=== PATIENT | female | born 1935 | race Caucasian/White ===

== ENCOUNTER 2021-10-28 10:50 | Observation (INO) ==
[2021-10-28] MEDS ORDERED: CeFAZolin Syr 2,000MG/20 ML 2,000 MG/20 ML SYRINGE IVPB ONE (12:38)
[2021-10-28] MEDS ORDERED: Ringers Solution, Lactated 1,000 ML IVC SCH (12:45)
[2021-10-28] MEDS ORDERED: TOTAL JOINT MIXTURE (100ML) INTRAART ONE (13:05)
[2021-10-28] MEDS ORDERED: Povidone-Iodine 45 ML, Sodium Chloride IRRigation 1,000 ML IR ONE (13:05)
[2021-10-28] MEDS ORDERED: *HR* Rocuronium Bromide 50 MG/5 ML VIAL ONE ×2 (14:16→16:27)
[2021-10-28] MEDS ORDERED: *HR* FentaNYL (PF) 100 MCG/2 ML VIAL ONE ×2 (14:16→16:50)
[2021-10-28] MEDS ORDERED: Lidocaine HCL 4 ML Topical Solution (Laryng-O-Jet Kit Sterile Pak) TP ONE (14:16)
[2021-10-28] MEDS ORDERED: Lidocaine -MPF 2% 5 ML VIAL ONE (14:16)
[2021-10-28] MEDS ORDERED: *HR* Propofol 200 MG/20 ML VIAL IVP ONE (14:16)
[2021-10-28] MEDS ORDERED: Ondansetron 4 MG/2 ML VIAL ONE (14:16)
[2021-10-28] MEDS ORDERED: Tranexamic Acid 1,000 MG/10 ML VIAL ONE ×2 (14:18→17:52)
[2021-10-28] MEDS ORDERED: ROPIVACAINE/PF/NS 0.25% 1 EACH SYRINGE INTRAART ONE (14:25)
[2021-10-28] MEDS ORDERED: Ropivacaine/PF 0.5% 30 ML VIAL ONE (14:25)
[2021-10-28] MEDS ORDERED: Vancomycin 1,000 MG VIAL ONE ×2 (15:23→15:47)
[2021-10-28] MEDS ORDERED: Sugammadex Sodium 200 MG/2 ML VIAL IV ONE (18:19)
[2021-10-28] MEDS: *HR* FentaNYL (PF) 100 MCG/2 ML VIAL IVP PRN ×4 (18:56→19:42)
[2021-10-28] MEDS ORDERED: *HR* OxyCODONE Immed Rel 5 MG TABLET PO PRN (19:50)
[2021-10-28] MEDS ORDERED: Lacri-Lube 3.5 GM TUBE ONE (20:04)
[2021-10-28] MEDS ORDERED: Naloxone 0.4 MG/ML INJ IVP PRN (21:40)
[2021-10-28] MEDS ORDERED: *HR* Promethazine 25 MG/ML VIAL IM PRN (21:40)
[2021-10-28] MEDS ORDERED: Ondansetron 4 MG/2 ML VIAL IVP PRN (21:40)
[2021-10-28] MEDS ORDERED: Sennosides 8.6 MG TABLET PO PRN (21:40)
[2021-10-28] MEDS ORDERED: MOM Conc 10 ML UD.LIQ PO PRN (21:40)
[2021-10-28] MEDS: rOPINIRole 1 MG TABLET PO SCH (22:50)
[2021-10-28] MEDS: CeFAZolin 2 GM/120 ML BAG IVPB SCH (22:51)
[2021-10-28] MEDS: Ketorolac 30 MG/ML VIAL IVP SCH (22:51)
[2021-10-28] MEDS: PrednisoLONE Acetate 1% Opth 5 ML BOTTLE BOTH EYES SCH (22:53)
[2021-10-28] MEDS: Ringers Solution, Lactated 1,000 ML IVC SCH (22:55)
[2021-10-29] MEDS: Ketorolac 30 MG/ML VIAL IVP SCH ×4 (00:29→19:40)
[2021-10-29] MEDS: CeFAZolin 2 GM/120 ML BAG IVPB SCH (00:35)
[2021-10-29] MEDS: MetroNIDAZOLE 500 MG/100 ML 500 MG/100 ML BAG IVPB SCH ×3 (01:38→16:06)
[2021-10-29 05:26] LABS: Basophils % 0.1 %; Hematocrit 40.3 % (35.3-44.9); Hemoglobin 13.5 g/dL (11.5-15.4); Immature Granulocytes % 0.6 % (0-4); Lymphocytes # 0.3 K/mcL (0.6-4.6); Lymphocytes % 1.3 %; Mean Corpuscular HGB Conc 33.5 g/dL (31.6-35.5); Mean Corpuscular Hemoglobin 32.6 pg (28.0-33.3); Mean Corpuscular Volume 97.3 fL (83.0-100.0); Mean Platelet Volume 9.5 fL (9.4-12.4); Monocytes # 0.9 K/mcL (0.0-1.3); Monocytes % 4.1 %; Neutrophils # 21.1 K/mcL (1.6-8.9); Platelet Count 260 K/mcL (140-400); Red Blood Count 4.14 M/mcL (3.82-4.97); Red Cell Distribution Width 12.9 % (11.5-14.5); Segmented Neutrophils % 93.9 %; White Blood Count 22.5 K/mcL (4.3-11.1)
[2021-10-29 05:46] LABS: BUN/Creatinine Ratio 25 (6-26); Blood Urea Nitrogen 15 mg/dL (8-23); Calcium 8.9 mg/dL (8.6-10.3); Carbon Dioxide 23 mEq/L (23-29); Chloride 98 mEq/L (98-107); Glucose 160 mg/dL (70-105); Magnesium 1.4 mg/dL (1.6-2.6); Osmolality,Calculated 278 (280-300); Phosphorous 3.2 mg/dL (2.7-4.5); Potassium 3.7 mEq/L (3.5-5.1); Sodium 132 mEq/L (136-145); eGFR For African Americans > 60 (> 60); eGFR For Non-African Americans > 60 (> 60)
[2021-10-29] MEDS ORDERED: Magnesium Sulfate 1 GM/102 ML PIGGYBACK IVPB ONE (06:26)
[2021-10-29] MEDS ORDERED: Ringers Solution, Lactated 1,000 ML IVC STA (06:48)
[2021-10-29] MEDS ORDERED: 0.9 % Sodium Chloride 1,000 ML IVC SCH (08:00)
[2021-10-29] MEDS: Cholecalciferol (D-3) 1,000 UNIT (25MCG) TABLET PO SCH (08:16)
[2021-10-29] MEDS: rOPINIRole 1 MG TABLET PO SCH ×3 (08:16→19:34)
[2021-10-29] MEDS: Ascorbic Acid 500 MG TABLET PO SCH ×2 (08:17→19:34)
[2021-10-29] MEDS: Multivit/Ca/Min/Fe/FA 1 TAB TABLET PO SCH (08:17)
[2021-10-29] MEDS: *HR* Metformin 500 MG TABLET PO SCH ×2 (08:17→19:34)
[2021-10-29] MEDS ORDERED: OCUVITE PO SCH (09:00)
[2021-10-29] MEDS: PrednisoLONE Acetate 1% Opth 5 ML BOTTLE BOTH EYES SCH ×4 (11:03→21:43)
[2021-10-29] MEDS: cefTRIAXone 1,000 MG in 0.9 % Sodium Chloride Mini Bag 100 ML IVPB SCH (11:04)
[2021-10-29] MEDS: *HR* OxyCODONE Immed Rel 5 MG TABLET PO PRN (14:00)
[2021-10-29] MEDS: Ringers Solution, Lactated 1,000 ML IVC SCH (14:05)
[2021-10-29] MEDS: Aspirin Enteric Coated 81 MG Tablet PO SCH (19:35)
[2021-10-30] MEDS: Ketorolac 30 MG/ML VIAL IVP SCH ×3 (00:04→18:36)
[2021-10-30] MEDS: MetroNIDAZOLE 500 MG/100 ML 500 MG/100 ML BAG IVPB SCH ×3 (01:24→16:05)
[2021-10-30] MEDS: Ringers Solution, Lactated 1,000 ML IVC SCH ×2 (03:42→16:09)
[2021-10-30] MEDS ORDERED: Chloraseptic Spray 177 ML BOTTLE MM PRN (05:05)
[2021-10-30 05:09] LABS: Basophils % 0.2 %; Eosinophils # 0.1 K/mcL (0.0-0.6); Eosinophils % 0.5 %; Hematocrit 37.9 % (35.3-44.9); Hemoglobin 12.4 g/dL (11.5-15.4); Immature Granulocytes % 0.3 % (0-4); Mean Corpuscular HGB Conc 32.7 g/dL (31.6-35.5); Mean Corpuscular Hemoglobin 32.1 pg (28.0-33.3); Mean Corpuscular Volume 98.2 fL (83.0-100.0); Mean Platelet Volume 9.5 fL (9.4-12.4); Monocytes # 0.7 K/mcL (0.0-1.3); Monocytes % 5.9 %; Neutrophils # 9.7 K/mcL (1.6-8.9); Platelet Count 213 K/mcL (140-400); Red Blood Count 3.86 M/mcL (3.82-4.97); Red Cell Distribution Width 13.1 % (11.5-14.5); Segmented Neutrophils % 84.1 %; White Blood Count 11.5 K/mcL (4.3-11.1)
[2021-10-30 05:11] LABS: BUN/Creatinine Ratio 33 (6-26); Blood Urea Nitrogen 14 mg/dL (8-23); Calcium 8.5 mg/dL (8.6-10.3); Carbon Dioxide 22 mEq/L (23-29); Chloride 101 mEq/L (98-107); Glucose 80 mg/dL (70-105); Osmolality,Calculated 271 (280-300); Potassium 3.8 mEq/L (3.5-5.1); Sodium 131 mEq/L (136-145); eGFR For African Americans > 60 (> 60); eGFR For Non-African Americans > 60 (> 60)
[2021-10-30] MEDS: Aspirin Enteric Coated 81 MG Tablet PO SCH (08:28)
[2021-10-30] MEDS: Cholecalciferol (D-3) 1,000 UNIT (25MCG) TABLET PO SCH (08:29)
[2021-10-30] MEDS: *HR* Metformin 500 MG TABLET PO SCH ×2 (08:29→16:05)
[2021-10-30] MEDS: rOPINIRole 1 MG TABLET PO SCH ×3 (08:29→20:37)
[2021-10-30] MEDS: Ascorbic Acid 500 MG TABLET PO SCH ×2 (08:29→16:04)
[2021-10-30] MEDS: Multivit/Ca/Min/Fe/FA 1 TAB TABLET PO SCH (08:29)
[2021-10-30] MEDS: cefTRIAXone 1,000 MG in 0.9 % Sodium Chloride Mini Bag 100 ML IVPB SCH (08:30)
[2021-10-30] MEDS: PrednisoLONE Acetate 1% Opth 5 ML BOTTLE BOTH EYES SCH ×5 (11:57→20:39)
[2021-10-30] MEDS: *HR* OxyCODONE Immed Rel 5 MG TABLET PO PRN ×2 (16:09→21:08)
[2021-10-30] MEDS: metroNIDAZOLE 500 MG TABLET PO SCH (20:37)
[2021-10-31] MEDS: Ketorolac 30 MG/ML VIAL IVP SCH ×3 (00:03→11:22)
[2021-10-31 04:44] LABS: Basophils % 0.2 %; Eosinophils # 0.1 K/mcL (0.0-0.6); Eosinophils % 1.1 %; Hematocrit 36.5 % (35.3-44.9); Hemoglobin 12.5 g/dL (11.5-15.4); Immature Granulocytes % 0.5 % (0-4); Lymphocytes # 0.7 K/mcL (0.6-4.6); Lymphocytes % 6.7 %; Mean Corpuscular HGB Conc 34.2 g/dL (31.6-35.5); Mean Corpuscular Hemoglobin 33.1 pg (28.0-33.3); Mean Corpuscular Volume 96.6 fL (83.0-100.0); Mean Platelet Volume 9.6 fL (9.4-12.4); Monocytes # 0.6 K/mcL (0.0-1.3); Monocytes % 5.5 %; Neutrophils # 9.1 K/mcL (1.6-8.9); Platelet Count 260 K/mcL (140-400); Red Blood Count 3.78 M/mcL (3.82-4.97); White Blood Count 10.6 K/mcL (4.3-11.1)
[2021-10-31 05:01] LABS: BUN/Creatinine Ratio 21 (6-26); Blood Urea Nitrogen 9 mg/dL (8-23); Calcium 8.2 mg/dL (8.6-10.3); Carbon Dioxide 27 mEq/L (23-29); Chloride 97 mEq/L (98-107); Glucose 72 mg/dL (70-105); Osmolality,Calculated 267 (280-300); Potassium 3.6 mEq/L (3.5-5.1); Sodium 130 mEq/L (136-145); eGFR For African Americans > 60 (> 60); eGFR For Non-African Americans > 60 (> 60)
[2021-10-31 05:08] LABS: Magnesium 1.5 mg/dL (1.6-2.6)
[2021-10-31 05:20] LABS: Thyroid Stimulating Hormone 1.891 mcIU/mL (0.340-5.600)
[2021-10-31] MEDS ORDERED: *HR* Metoprolol 5 MG/5 ML VIAL IVP ONE (05:23)
[2021-10-31] MEDS: Cholecalciferol (D-3) 1,000 UNIT (25MCG) TABLET PO SCH (09:11)
[2021-10-31] MEDS: Aspirin Enteric Coated 81 MG Tablet PO SCH (09:12)
[2021-10-31] MEDS: rOPINIRole 1 MG TABLET PO SCH ×3 (09:12→16:14)
[2021-10-31] MEDS: Ascorbic Acid 500 MG TABLET PO SCH ×2 (09:12→15:28)
[2021-10-31] MEDS: metroNIDAZOLE 500 MG TABLET PO SCH ×2 (09:12→15:28)
[2021-10-31] MEDS: *HR* Metformin 500 MG TABLET PO SCH ×2 (09:12→15:28)
[2021-10-31] MEDS: Multivit/Ca/Min/Fe/FA 1 TAB TABLET PO SCH (09:12)
[2021-10-31] MEDS: PrednisoLONE Acetate 1% Opth 5 ML BOTTLE BOTH EYES SCH ×3 (09:25→15:29)
[2021-10-31 11:31] VITALS: BP 114/61; PULSE 89; TEMP 98.3; O2SAT 94
[2021-10-31 12:24] LABS: Influenza A PCR Negative (Negative); Influenza B PCR Negative (Negative); Resp. Syncytial Virus PCR Negative (Negative)
[2021-10-31 12:53] LABS: SARS-CoV-2 by PCR (In House) Negative (Negative)
== END 2021-10-31 16:12 ==
LOC: SUATTDRO → 4WAOSI 10:50 → SDCAOSI 10:50 → 4WAOSI 21:40
PROVIDERS: ADMIT Orthopaedic Surgery; ATTEND Orthopaedic Surgery